=== PATIENT | female | born 1935 | race Caucasian/White ===

== ENCOUNTER 2017-12-27 11:56 | Emergency (ER) | payer MEDICARE, OTHER ==
[~2017-12-27] VITALS: Ht 157.5 cm; Wt 71.9 kg
[~2017-12-27 11:56] MED LIST: ATORVASTATIN CA20 MG PO; CELEBREX200 MG PO; LOSARTAN POTAS100 MG PO; OMEPRAZOLE40 MG PO; OXYBUTYNIN CHLO10 MG PO; POTASSIUM CHLO10 ME2 PO; SYNTHROID125 MCG PO
[2017-12-27] MEDS ORDERED: NORVASC10 MG PO (12:13)
[2017-12-27] MEDS ORDERED: ASPIR 8181 MG PO (12:14)
[2017-12-27] MEDS ORDERED: CALCIUM 500 +1 EAC4 PO (12:15)
[2017-12-27] MEDS ORDERED: HYDRALAZINE HC100 MG PO (12:16)
[2017-12-27] MEDS ORDERED: FEOSOL325 MG PO (12:16)
[2017-12-27] MEDS ORDERED: LASIX20 MG PO (12:17)
[2017-12-27] MEDS ORDERED: VERAPAMIL HCL40 MG PO (12:18)
== END 2017-12-27 13:41 | disposition home or self-care (01) ==
LOC: ED 11:56
DX: R60.0 Localized edema (principal); I10 Essential (primary) hypertension; E03.9 Hypothyroidism, unspecified; Z88.8 Allergy status to other drugs, medicaments and biological substances; Z79.899 Other long term (current) drug therapy; Z79.82 Long term (current) use of aspirin
CPT/HCPCS: 85025; 85610; 93971; 99284

== ENCOUNTER 2024-12-10 06:42 | Day surgery (SDC) | payer MEDICARE, OTHER ==
[2024-12-02 13:27] VITALS: BP 180/55
[~2024-12-10] VITALS: Ht 157.5 cm; Wt 59.1 kg
[~2024-12-10 06:42] MED LIST changes: +ASPIR 8181 MG PO; +CAL MAG ZINC +1 EAC1 PO; +CALCIUM 500 +1 EAC4 PO; +CEFDINIR300 MG PO; +CLOPIDOGREL75 MG PO; +CYCLOBENZAPRINE10 MG PO; +FEOSOL325 MG PO; +HYDRALAZINE HC100 MG PO; +LACTATED RINGER'S 1,000 ML IV SCH; +LASIX20 MG PO; +MAGNESIUM250 M1 PO; +NORVASC10 MG PO; +TYLENOL325 MG PO; +VERAPAMIL HCL40 MG PO; +VIT C-ROSE HIP500 MG PO
[2024-12-10] MEDS ORDERED: LIDOCAINE HCL 1% 5 ML SDV INJ ONE (07:00)
[2024-12-10] MEDS ORDERED: IBLOOD GLUCOSE TEST STRIP 1 EA TEST VI PRN (07:00)
[2024-12-10 07:02] VITALS: BP 190/63
--- NOTE | 2024-12-10 07:47 | NUR ---
VISITED DURING SPIRITUAL CARE ROUNDS. PT SUPPORTED BY ELECTRONIC ENGINEERING TECHNICIAN IN ROOM. BOTH IN OVERALL GOOD SPIRITS, EXPRESSED DORA SOURCE OF STRENGTH. NO IMMEDIATE NEEDS. PROCESS DEVELOPER PROVIDED SUPPORTIVE PRESENCE, HOSPITALITY, PRAYER.
[2024-12-10] MEDS ORDERED: CEFAZOLIN SODIUM 2 GM/20 ML SYR IV SCH (08:03)
[2024-12-10] MEDS ORDERED: propofoL 200 MG/20 ML VIAL ONE (08:18)
[2024-12-10] MEDS ORDERED: LIDOCAINE HCL 2% 5 ML SDV ONE (08:18)
--- NOTE | 2024-12-10 08:45 | NUR ---
12/10/24 0845 Cora Randall 3797-PATIENT ARRIVED TO PACU ON 4L NC RR EVEN. PATIENT LAYING LEFT LATERAL REACTIVE TO VERBAL STIMULI ORIENTED TO PACU. DENIES PAIN OR NAUSEA. ABDOMEN SOFT. APACED. IVF INFUSING.
[2024-12-10 09:16] VITALS: BP 189/57
--- NOTE | 2024-12-15 14:28 | PATH ---
[facility] [address], [place] [address] Signed SPECIMEN(S): A PYLORUS BIOPSY SPECIMEN(S): B ANTRUM BIOPSY SPECIMEN(S): C ESOPHAGEAL BIOPSY, 25 CM SPECIMEN SOURCE: A. PYLORUS BIOPSY B. ANTRUM BIOPSY C. ESOPHAGEAL BIOPSY, 25 CM CLINICAL HISTORY: History of dysphagia, dysmotility of esophagus, normal mucosa FINAL PATHOLOGIC DIAGNOSIS: A. Pylorus biopsy: - Gastric mucosa with superficial chronic gastritis. - Negative for Helicobacter pylori organisms on routine-stained sections. B. Antrum biopsy: - Gastric antral-type mucosa with superficial chronic gastritis. - A Helicobacter pylori immunostain is positive for organisms. C. Esophageal biopsy at 25 cm: - Benign esophageal epithelium, negative for increased epithelial eosinophils. - Negative for glandular mucosa. JVR:clv MICROSCOPIC EXAMINATION: Histologic sections of all submitted blocks are examined by light microscopy. These findings, together with the gross examination, support the pathologic diagnosis. A Helicobacter pylori immunostain is performed with appropriate positive and negative controls on block B1 and is negative for organisms. JVR:clv GROSS DESCRIPTION: A. The specimen, labeled and designated "Sacrison, pylorus biopsy," is received in formalin and consists of two robert soft tissue fragments, ranging from 0.4-0.6 cm. Entirely submitted in (A1). B. The specimen, labeled and designated "Sacrison, antrum biopsy," is received in formalin and consists of two robert soft tissue fragments, ranging from 0.4-0.5 cm. Entirely submitted in (B1). C. The specimen, labeled and designated "Sacrison, esophageal biopsy at 25 cm," is received in formalin and consists of one robert soft tissue fragment, 0.5 cm. PATIENT NAME: KANG MORALES PATHOLOGY DATE OF : 39 REPORT #: [id number] PHYSICIAN: [facility] PCP: SUGEY AGUIRRE MD REPORT IS CONFIDENTIAL AND NOT TO BE RELEASED WITHOUT AUTHORIZATION [facility] [address], [place] [address] Signed Entirely submitted in (C1). VB (under the direct supervision of a pathologist) The Gross Description was prepared using a voice recognition system. The report was reviewed for accuracy; however, sound-alike word errors, addition and/or deletions may occur. If there is any question about this report, please contact Client Services. ADDITIONAL NOTES: Immunohistochemical and/or in situ hybridization studies were performed on this case with the appropriate positive controls that react as expected. This test was developed and its performance characteristics determined by [facility]. It has not been cleared or approved by the U.S. Food and Drug Administration. The FDA has determined that such clearance or approval is not necessary. This test is used for clinical purposes. It should not be regarded as investigational or for research. [facility] is certified under the Clinical Laboratory Improvement Amendments of 1988 (CLIA) as qualified to perform high complexity clinical laboratory testing. This assay has not been validated for specimens that have been decalcified PERFORMING LABORATORY: Technical component was performed by [facility], [address] [place] [id number] (CLIA# [id number]). Professional interpretation was performed by [facility] - [facility], [address] [place] [id number] (CLIA#: [id number]). Diagnostician: José Miguel Gardner MD Pathologist Electronically Signed 12/15/2024 Copies: ~ PATIENT NAME: KANG MORALES PATHOLOGY DATE OF : 39 REPORT #: [id number] PHYSICIAN: [facility] PCP: SUGEY AGUIRRE MD REPORT IS CONFIDENTIAL AND NOT TO BE RELEASED WITHOUT AUTHORIZATION
== END 2024-12-10 09:20 | disposition home or self-care (01) ==
LOC: DS 06:42
PROVIDERS: ATTEND Surgery
PROC: 0DB78ZX Excision of Stomach, Pylorus, Via Natural or Artificial Opening Endoscopic, Diagnostic (ICD-10-PCS; 2024-12-10)
PROC: 0DB58ZX Excision of Esophagus, Via Natural or Artificial Opening Endoscopic, Diagnostic (ICD-10-PCS; principal; 2024-12-10 08:30)
DX: K29.50 Unspecified chronic gastritis without bleeding (principal); R13.10 Dysphagia, unspecified; E03.9 Hypothyroidism, unspecified; E78.5 Hyperlipidemia, unspecified; M19.90 Unspecified osteoarthritis, unspecified site; J45.909 Unspecified asthma, uncomplicated; I10 Essential (primary) hypertension; Z79.899 Other long term (current) drug therapy; Z88.8 Allergy status to other drugs, medicaments and biological substances
CPT/HCPCS: 00813; 36415; 87077; J0690; J2003; J2704; J7121

== ENCOUNTER 2025-05-05 14:25 | Inpatient (IN) | payer MEDICARE, OTHER ==
[~2025-05-05] VITALS: Ht 157.5 cm; Wt 56.6 kg
[~2025-05-05 14:25] MED LIST changes: -LACTATED RINGER'S 1,000 ML IV SCH; -OXYBUTYNIN CHLO10 MG PO; +OXYBUTYNIN CHLO15 MG PO; +SEVOFLURANE 250 ML BTL INH ONE
[2025-05-05 15:03] LABS: BASOPHILS 0.2 % (0.1-1.2); EOSINOPHILS 1.2 % (0.7-5.8); LYMPHOCYTES 16.2 % (19.3-51.7); MCH 32.3 PG (25.6-32.2); MCHC 33.7 g/dL (32.2-35.5); MCV 95.6 fL (79.4-94.8); MONOCYTES 6.1 % (4.7-12.5); NEUTROPHILS 76.1 % (34.0-71.1); RBC 3.41 M/uL (3.93-5.22)
[2025-05-05 15:27] LABS: ALT (SGPT) 18.0 U/L (14-59); AST (SGOT) 15.0 U/L (15-37); GLOMERULAR FILTRATION RATE,EST 50.0 mL/min (>60); PROTEIN, TOTAL 7.6 g/dL (6.4-8.2); UREA NITROGEN 26.0 mg/dL (7-18)
[2025-05-05] MEDS ORDERED: SODIUM CHLORIDE 0.9% 1,000 ML IV PRN ×2 (15:30→16:00)
[2025-05-05 17:57] LABS: BLOOD/HGB, URINE NEGATIVE (Negative); KETONE, URINE TRACE (Negative); LEUK ESTERASE, URINE NEGATIVE (negative); NITRITE, URINE NEGATIVE (negative)
[2025-05-05] MEDS ORDERED: LACTATED RINGER'S 1,000 ML IV SCH (18:45)
[2025-05-05] MEDS ORDERED: DEXTROSE 5% - LACTATED RINGERS 1,000 ML IV SCH (20:30)
--- NOTE | 2025-05-05 20:35 | NUR ---
PT TO ROOM APPROX 2019 VIA STRETCHER WITH ED RN. PT ALERT AND ORIENTED. ABLE TO TRANSFER SELF FROM STRETCHER TO BED. VS OBTAINED. PT DENIES PAIN OR NAUSEA AT THIS TIME. MD IN ROOM. TRUCKER IN FOR ADMISSION.
--- NOTE | 2025-05-05 20:49 | NUR ---
ADMISSION COMPLETED AT THIS TIME, pt AWAKE AND RESTING IN BED. VERBALIZED UNDERSTANDING TO USE CALL LIGHT BEFORE GETTING OOB, CALL LIGHT AND PERSONAL BELONGINGS IN REACH. MOUTH SWAB PROVIDED PER pt REQUEST, OKAY'D BY KYLE AUGUSTINE. NO ADDITIONAL NEEDS OR CONCERNS VERBALIZED.
[2025-05-05] MEDS ORDERED: FAMOTIDINE 20 MG/ 2 ML VIAL IV SCH ×2 (21:00)
[2025-05-05 21:19] VITALS: BP 169/42
--- NOTE | 2025-05-05 23:15 | NUR ---
CALL LIGHT ANSWERED. PT UP TO BR WITH WITH MINIMAL SBA TO VOID 300 ML YELLOW URINE. GAIT STEADY. BACK TO BED, MAYCOL WELL. PT UNABLE TO SWALLOW SALIVA. PT CLEARING THROAT AND SPITTING IN TISSUE. HOB ELEVATED >30 DEGREES. WARM BLANKET PROVIDED. NO FURTHER NEEDS. BED ALARM IN PLACE. CALL LIGHT IN REACH.
[2025-05-06] VITALS (12 sets, daily range): BP systolic 147–190; BP diastolic 42–54
--- NOTE | 2025-05-06 02:29 | NUR ---
VS AND I&O OBTAINED. BP ELEVATED. PRN FOR HTN ADMIN PER EMAR. PT DENIES PAIN OR NAUSEA. HOB ELEVATED. DENIES NEEDS. CALL LIGHT IN REACH.
--- NOTE | 2025-05-06 04:50 | NUR ---
PT RESTING IN BED WITH EYES CLOSED. HOB ELEVATED. CALL LIGHT IN REACH. BED ALARM FOR SAFETY.
--- NOTE | 2025-05-06 05:13 | NUR ---
PT SLEEPING. PT HAS NO NEEDS AT THIS TIME. CALL LIGHT WITHIN REACH.
[2025-05-06 05:17] LABS: BASOPHILS 0.5 % (0.1-1.2); EOSINOPHILS 7.0 % (0.7-5.8); LYMPHOCYTES 24.6 % (19.3-51.7); MCH 32.2 PG (25.6-32.2); MCHC 33.1 g/dL (32.2-35.5); MCV 97.2 fL (79.4-94.8); MONOCYTES 8.6 % (4.7-12.5); NEUTROPHILS 59.1 % (34.0-71.1); RBC 2.86 M/uL (3.93-5.22)
[2025-05-06 05:33] LABS: ALT (SGPT) 13.0 U/L (14-59); AST (SGOT) 10.0 U/L (15-37); GLOMERULAR FILTRATION RATE,EST 59.0 mL/min (>60); PROTEIN, TOTAL 6.2 g/dL (6.4-8.2); UREA NITROGEN 18.0 mg/dL (7-18)
--- NOTE | 2025-05-06 06:08 | NUR ---
IV PUMP ALARMING. ISSUE RESOLVED. PT NPO. ORAL CARE SUPPLIES PROVIDED. IVF INFUSING PER ORDER. PT UNABLE TO SWALLOW SPUTUM. SMALL AMOUNT NOTED IN PAPER CUP. HOB REMAINS ELEVATED. PT DENIES FURTHER NEEDS. CALL LIGHT IN REACH.
--- NOTE | 2025-05-06 07:02 | NUR ---
PHONED REGARDING CHEST X-RAY. NEW TELEPHONE ORDERS RECEIVED VERIFIED WITH READBACK METHOD.
--- NOTE | 2025-05-06 09:23 | NUR ---
Patient assisted to chair, no acute distress. Patient reports she is feeling better this morning, she denies pain, pt reports continued intermittent regurgitation. Patient has a patent airway, respirations non labored. Blood pressure elevated, 190/52, p60. Hydralazine 5mg iv admin at this time.
--- NOTE | 2025-05-06 09:53 | NUR ---
PATIENT ASSISTED TO BATHROOM SBA, TOLERATED WELL. PATIENT SITTING UP IN RECLINER WATCHING TV, DENIES ANY NEEDS AT THIS TIME. CALL LIGHT IN REACH.
--- NOTE | 2025-05-06 10:24 | NUR ---
ALERT AND ORIENTED IN RECLINER. STATES SHE LIVES WITH HER SISTER IN LAW IN A HOUSE. SHE IS ABLE TO GET AROUND WITHOUT ANY ASSISTANCE. USES NO DME BUT DOES HAVE A LOT OF DME IN HER HOME SHE LENDS OUT TO THOSE IN NEED. SHE IS PLANNING ON GOING [employer] NEXT WEEK. 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 SHE HAS A [employer] FOR [employer] WHEN HER [employer] IS GONE. PATIENT STATES SHE HAS ABSOLUTELY NO NEEDS AT THIS TIME AND WILL BE GOING HOME WHEN MEDICALLY READY, SHE IS HOPING THAT IS TODAY OR TOMORROW MORNING.
[2025-05-06] MEDS ORDERED: SYNTHROID75 MCG PO (10:44)
[2025-05-06] MEDS ORDERED: HYDRALAZINE HCL50 MG PO (10:44)
[2025-05-06] MEDS ORDERED: METOPROLOL SUCC50 MG PO (10:45)
[2025-05-06] MEDS ORDERED: LOSARTAN POTASS50 MG PO (10:46)
--- NOTE | 2025-05-06 10:46 | HP ---
[facility] [address], [place] [address] Signed ADMISSION DATE: 05/05/2025 REASON FOR ADMISSION: Esophageal obstruction, weight loss. HISTORY OF PRESENT ILLNESS: This 89-year-old white woman presents to the emergency room with complaints of epigastric pain and vomiting, which occurred yesterday. The patient says she has been unable to keep food down for a few days actually. She has regurgitation of saliva, which is described as "clear bubbly fluid." She was evaluated by Dr. Esdras Mcneil in the emergency room. A CT scan was obtained of the abdomen, which showed the lower most portion of the esophagus with some dilation and food material within it. The more proximal review of the CT was not forthcoming. Quite notably upon review of her record, she had been seen and underwent upper endoscopy by Dr. Devine on January 26, 2025. At that time upper endoscopy showed a fair amount of dry desiccated food debris from the proximal esophagus extending distally to the GE junction. The GE junction did not appear "tight." There was no stricture seen or neoplasm. The scope was passed in the stomach, which was advanced to the pylorus into the duodenum. The GE junction appeared normal and there were one or two gastric fundic polyps, but no masses seen. She had no evidence of Nino's esophagus at the distal esophageal area. The GE junction was considered to be at 40 cm. At 30 cm a white plaque like lesion was noted and a biopsy was taken of this. The patient says she has really not eaten for several days. This makes her anxious because she wants to go out cutting at her generous age of 89 years on May 17. She wants to be out of the hospital and back to action then. She has her a hunting [place] place [place]. She has had no hematemesis or other GI distress. REVIEW OF SYSTEMS: She denies any shortness of breath or chest pain. She has only had mild epigastric discomfort, but not much. She is not having hypersalivation. PHYSICAL EXAMINATION: GENERAL: An elderly 89-year-old woman who looks to be in no acute distress. VITAL SIGNS: Temperature is 98.1, pulse is 60, blood pressure 163/48. Trachea is midline. I detect no bruit. CHEST: Clear. HEART: Regular without murmur. ABDOMEN: Poor muscle tone, but concordant to her age. Abdominal palpation reveals no Electronically Signed By: LIZETTE CORRIGAN MD 05/06/25 1046 PATIENT NAME: KANG MORALES HISTORY AND PHYSICAL DATE OF : 39 REPORT #: [id number] PHYSICIAN: LIZETTE CORRIGAN MD PCP: SUGEY AGUIRRE MD REPORT IS CONFIDENTIAL AND NOT TO BE RELEASED WITHOUT AUTHORIZATION [facility] [address], [place] [address] Signed ascites, tenderness, or mass. EXTREMITIES: No clubbing, cyanosis, or edema. ASSESSMENT: I reviewed her medical records including those of her recent upper endoscopy this past December. I also noted that I had operated on her in 2008 for an incisional hernia at the umbilicus; I had previously excised benign pelvic mass from her. Although, my 1st concern upon learning of the patient was that of esophageal cancer given her weight loss and apparent obstruction of the esophagus. 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 At this point, she will be given IV fluids and avoiding oral intake other than a few sips of fluid as needed for comfort. Upper endoscopy for clearance of the esophagus would be undertaken and possibly an upper GI to affirm an underlying diagnosis of achalasia. I doubt very much this represents a benign or malignant stricture proper. Although a classic treatment for achalasia would be esophageal myotomy, she may benefit on a short-term basis with an injection of Botox into the submucosal area of the esophageal sphincter to allow for muscle relaxation. There are of course other more notable advancements in achalasia treatment including POEM (per oral endoscopic myotomy), but that is not locally or even regionally available that I am aware of. For now, patient will be given IV fluids, a few sips of liquids as needed for comfort and we will consider reimaging of the esophagus proper tomorrow. MD BLAINE Alejo/MODL /[id number] cc: MD Sugey Jones MD Electronically Signed By: LIZETTE CORRIGAN MD 05/06/25 1046 PATIENT NAME: KANG MORALES HISTORY AND PHYSICAL DATE OF : 39 REPORT #: [id number] PHYSICIAN: LIZETTE CORRIGAN MD PCP: SUGEY AGUIRRE MD REPORT IS CONFIDENTIAL AND NOT TO BE RELEASED WITHOUT AUTHORIZATION [address] [place], [place] [address] Signed Copies: SUGEY AGUIRRE DMD ~ Electronically Signed By: LIZETTE CORRIGAN MD 05/06/25 1046 PATIENT NAME: KANG MORALES HISTORY AND PHYSICAL DATE OF : 39 REPORT #: [id number] PHYSICIAN: LIZETTE CORRIGAN MD PCP: SUGEY AGUIRRE MD REPORT IS CONFIDENTIAL AND NOT TO BE RELEASED WITHOUT AUTHORIZATION
--- NOTE | 2025-05-06 12:56 | NUR ---
Patient in chair on phone, no distress. Patient is on room air, respirations non labored, sp02 91% per cpox.
--- NOTE | 2025-05-06 13:32 | NUR ---
UR CLINICAL REVIEW: 2 MN FOR [facility]PER SUPERINTENDENT AUTOMOTIVE MEET INPT FOR POSSIBLE ACHALASIA WITH NEED FOR SURGICAL PROCEDURE, IVF AND MONITORING. MEDICARE INPT 05/05/25 @ 2020 ORDER MATCHES REG NO AUTH REQUIRED PER MEDICARE GUIDELINES DISCHARGE TO HOME WHEN STABLE
--- NOTE | 2025-05-06 14:42 | NUR ---
HOURLY ROUNDING DELEGATED BY NURSE TO RECHECK PATIENT BP. NURSE HAS BEEN NOTIFIED
--- NOTE | 2025-05-06 14:45 | NUR ---
PT BP ELEVATED STILL, PRIMARY RN NOTIFIED. PRN HYRALAZINE GIVEN.
--- NOTE | 2025-05-06 14:50 | NUR ---
PT RESTING IN BED, ELEVATED BP. DR. CORRIGAN NOTIFIED AND ORDERS TO INCREASE HYDRALAZINE TO 10MG Q6HRS PRN FOR SBP>170, ORDERS UPDATED IN THE COMPUTER. MD ALSO WOULD LIKE ME TO LET PATIENT KNOW SHE WILL BE GOING DOWN TOMORROW FOR AN EGD, REMAIN NPO AT THIS TIME. PT VERBALIZED UNDERSTANDING.
--- NOTE | 2025-05-06 15:31 | NUR ---
FOCUSED ASSESSMENT COMPLETE. BOWEL SOUNDS ACTIVE IN ALL FOUR QUADRANTS, PATIENT STATES "I HAVE BEEN SPITTING UP IN A CUP." THIS RN VISUALIZED SCANT AMOUNT OF REGURGITATED SALIVA IN THE CUP. PATIENT SITTING UP PLAYING CARDS WITH FAMILY AT THE BEDSIDE. PATIENT DENIES NEEDS AT THIS TIME. CALL LIGHT IN REACH.
[2025-05-06] MEDS ORDERED: ADULT LOW DOSE81 MG PO (17:05)
--- NOTE | 2025-05-06 17:26 | NUR ---
medications reconiciled using PCP notes and patient interview
--- NOTE | 2025-05-06 19:05 | NUR ---
REPORT RECEIVED FROM JENNI AUGUSTINE. pt RESTING IN THE BED. pt RECEIVED PHONE CALL FROM FAMILY. pt DENIES ANY OTHER NEEDS AT THIS TIME. CALL LIGHT WITHIN REACH. BOARD UPDATED.
--- NOTE | 2025-05-06 20:15 | NUR ---
AGRICULTURAL CROP FARM MANAGER OBTAINED VITALS. NO NEW I&O AT THIS TIME. PT DECLINED ORAL CARE. PT STATES NO NEEDS AT THIS TIME. CALL LIGHT WITHIN REACH AND BED ALARM ON.
--- NOTE | 2025-05-06 20:50 | NUR ---
ASSESSMENT AND VITAL SIGNS DONE. IV ASSESSED, WNL. pt DENIES ANY OTHER NEEDS AT THIS TIME. CALL LIGHT WITHIN REACH. pt NPO AT THIS TIME. ICE CHIPS FOR COMFORT.
--- NOTE | 2025-05-06 22:30 | NUR ---
THIS RN IN RM TO CHECK ON pt. pt TRYING TO SIT ON THE EDGE OF THE BED TO USE THE BR. THIS RN HELPED pt GET ON THE EDGE OF THE BED. BRINELL TESTER IN TO HELP pt TO THE BR. pt BACK TO BED. pt DENIES ANY OTHER NEEDS AT THIS TIME. CALL LIGHT WITHIN REACH.
[2025-05-07] VITALS (11 sets, daily range): BP systolic 142–207; BP diastolic 33–66
--- NOTE | 2025-05-07 00:30 | NUR ---
pt BED ALARM ALARMING. pt SITTING ON THE EDGE OF THE BED. pt ASKING WHAT TIME IT WAS AND WHERE SHE WAS AND WHY SHE WAS HERE. THIS RN EDUCATED pt AND REMINDED pt THAT SHE WAS AT THE HOSPITAL AND SHE WAS HERE FOR A PROCEDURE CALLED AN EGD IN THE MORNING AND THAT IT WAS THE MIDDLE OF THE NIGHT. pt SAID "SO I DONT HAVE TO GET UP" pt BACK TO BED. pt DENIES ANY OTHER NEEDS AT THIS TIME. CALL LIGHT WITHIN REACH.
--- NOTE | 2025-05-07 02:49 | NUR ---
pt RESTING IN THE BED WITH EYES CLOSED. RR EVEN AND UNLABORED. CALL LIGHT WITHIN REACH.
--- NOTE | 2025-05-07 03:27 | NUR ---
pt RESTING IN THE BED. NEW BAG OF IVF INFUSING PER ORDER. pt DENIES ANY OTHER NEEDS AT THIS TIME. CALL LIGHT WITHIN REACH.
--- NOTE | 2025-05-07 04:16 | NUR ---
pt RESTING IN THE BED WITH EYES CLOSED. RR EVEN AND UNLABORED. CALL LIGHT WITHIN REACH.
--- NOTE | 2025-05-07 04:53 | NUR ---
CALL LIGHT ANSWERED. PT NEEDED TO USE BATHROOM. KILN CAR REPAIRER SBA TO BATHROOM. PT VOIDED AND ASSISTED BACK TO BED. VITALS AND I&O OBTAINED. FAWN EDWARDS NOTIFIED OF HIGH B/P. PT STATES NO NEEDS WITH CALL LIGHT WTIHIN REACH. PT SITTING AT EDGE OF BED BRUSHING YOMI WITH BED ALARM ON.
--- NOTE | 2025-05-07 05:12 | NUR ---
IN RM TO ADMINISTER pt PRN HYDRALAZINE FOR ELEVATED BP. pt SITTING ON THE EDGE OF THE BED. pt DENIES ANY NEEDS AT THIS TIME. CALL LIGHT WITHIN REACH.
--- NOTE | 2025-05-07 05:56 | NUR ---
THIS CUSTOMS HOUSE BROKER RECHECKED PT B/P. RN NOTIFIED. PT STATES NO NEEDS AT THIS TIME. CALL LIGHT WITHIN REACH AND BED ALARM ON.
--- NOTE | 2025-05-07 06:00 | NUR ---
pt BP RECHECKED WITH A SBP RESULTS OF 168. pt DENIES ANY OTHER NEEDS AT THIS TIME. CALL LIGHT WITHIN REACH.
--- NOTE | 2025-05-07 07:11 | NUR ---
VERBAL REPORT RECEIVED BY GRACE AUGUSTINE. PATIENT IS RESTING IN BED EYES CLOSED BREATHING EVEN AND UNLABORED. NO NEEDS AT THIS TIME. CALL LIGHT IN REACH.
[2025-05-07] MEDS ORDERED: FAMOTIDINE 20 MG/ 2 ML VIAL IV SCH (09:00)
--- NOTE | 2025-05-07 09:00 | NUR ---
INTO SEE PATIENT. PATIENT WOULD LIKE TO D/C SOON POSSIBLE. HAS A SISTER IN LAW TO TAKE HER HOME WHEN MEDICALLY CLEARED. SHE WOULD LIKE TO GET TO [facility]. NO CM NEEDS.
--- NOTE | 2025-05-07 12:40 | NUR ---
IN ROOM WITH PATIENT, FAMILY AT BEDSIDE. DISCUSSED POC REQUESTED BY PATIENT. PATIENT DENIES ANY NEEDS AT THIS TIME. BED ALARM ON FOR PATIENT SAFETY. CALL LIGHT IN REACH.
--- NOTE | 2025-05-07 14:03 | NUR ---
PATIENT SITTING UP AT EDGE OF BED PLAYING CARDS WITH STAFF MEMBER. DENIES ANY NEEDS AT THIS TIME. CALL LIGHT IN REACH.
--- NOTE | 2025-05-07 14:36 | NUR ---
PATIENT DOWN TO OR VIA BED BY OR STAFF. SON CONSTANCE NOTIFIED PER REQUEST.
[2025-05-07] MEDS ORDERED: SUCCINYLCHOLINE IN 0.9% NACL 200 MG/10 ML SYRINGE ONE (15:23)
[2025-05-07] MEDS ORDERED: LIDOCAINE HCL 2% 5 ML SDV ONE (15:23)
[2025-05-07] MEDS ORDERED: ROCURONIUM BROMIDE 50 MG/5 ML SYR ONE (15:23)
[2025-05-07] MEDS ORDERED: fentaNYL citrate 100 MCG/2 ML VIAL ONE (15:23)
[2025-05-07] MEDS ORDERED: DEXAMETHASONE SOD PHOS 4 MG/ML VIAL ONE (15:23)
[2025-05-07] MEDS ORDERED: NALOXONE HCL 0.4 MG SYR IV PRN (15:30)
[2025-05-07] MEDS ORDERED: IBLOOD GLUCOSE TEST STRIP 1 EA TEST VI PRN (15:30)
--- NOTE | 2025-05-07 15:39 | NUR ---
05/07/25 1539 Danica Martino PATIENT IS RESPONSIVE TO MY VOICE UPON ARRIVAL TO PACU.
--- NOTE | 2025-05-07 16:05 | NUR ---
PATIENT ARRIVED TO [facility] FLOOR ROOM 109 VIA BED, ACCOMPANIED BY FAWN ALVARADO. REPORT RECEIVED. PATIENT AWAKE AND ALERT, DENIES PAIN AT THIS TIME. CPOX INTACT, CALL LIGHT WITHIN REACH.
--- NOTE | 2025-05-07 16:49 | NUR ---
CLEAR ENSURE AND ICE WATER PROVIDED PER PATIENT REQUEST. PATIENT ABLE TO SWALLOW AND TOLERATING WELL. PRN HYDROLAZINE GIVEN FOR SYSTOLIC GREATER THAN 170 ORDERED. CALL LIGHT IN REACH. PATIENT SITTING UP IN BED WATCHING TV AT THIS TIME.
--- NOTE | 2025-05-07 18:32 | NUR ---
PT SITTING UP IN BED WATCHING TV, JUST FINISHED DINNER TRAY. PT TOLERATED HER LIQUID DINNER WELL. NO REQUESTS AT THIS TIME. CALL LIGHT WITHIN REACH. BED ALARM ON.
--- NOTE | 2025-05-07 19:51 | NUR ---
pt RESTING IN THE BED. REPORT RECEIVED FROM LORENZO AUGUSTINE. pt DENIES ANY NEEDS AT THIS TIME. BOARD UPDATED. CALL LIGHT WITHIN REACH.
--- NOTE | 2025-05-07 21:06 | NUR ---
ASSESSMENT AND VITAL SIGNS DONE. pt BOWEL TONE ARE ACTIVE. pt ON CLEAR LIQUID DIET. pt TOLERATING WELL. IV ASSESSED, WNL. pt DENIES ANY OTHER NEEDS AT THIS TIME. CALL LIGHT WITHIN REACH.
--- NOTE | 2025-05-07 23:38 | NUR ---
pt RESTING IN THE BED WITH EYES CLOSED. RR EVEN AND UNLABORED. CALL LIGHT WITHIN REACH.
--- NOTE | 2025-05-07 23:55 | NUR ---
CALL LIGHT ANSWERED. PT NEEDED TO USE BATHROOM. VOICE NETWORK ENGINEER SBA TO BATHROOM. PT VOIDED NAD ASSISTED BACK TO BED. PT STATES NO FURTHER NEEDS AT THIS TIME. CALL LIGHT WITHIN REACH AND BED ALARM ON.
[2025-05-08 00:46] VITALS: BP 160/50
[2025-05-08 00:47] VITALS: BP 160/50
--- NOTE | 2025-05-08 01:00 | NUR ---
VITAL SIGNS DONE. pt RESTING IN THE BED. pt DENIES ANY NEEDS AT THIS TIME. CALL LIGHT WITHIN REACH.
--- NOTE | 2025-05-08 03:26 | NUR ---
pt RESTING IN THE BED WITH EYES CLOSED. RR EVEN AND UNLABORED. CALL LIGHT WITHIN REACH. FLUIDS TAKEN AWAY FROM BED SIDE.
[2025-05-08 05:32] VITALS: BP 173/62
--- NOTE | 2025-05-08 05:33 | NUR ---
ASSISTED PT OOB TO BR AND BACK TO BED. VITALS DONE, HAT EMPTIED. CALL LIGHT IN REACH, NO NEEDS AT THIS TIME.
--- NOTE | 2025-05-08 09:30 | NUR ---
INTO SEE PATIENT. PATIENT STILL HOPING TO D/C SOON. PATIENT SISTER IN LAW TO GOVERNMENT PROFESSOR WHEN MEDICALLY CLEARED. NO CM NEEDS.
[2025-05-08 09:53] VITALS: BP 173/50
[2025-05-08 10:15] VITALS: BP 173/50
--- NOTE | 2025-05-08 10:31 | NUR ---
Patient in bed watching tv, no acute distress. Patient's head of bed elevated, patent airway, respiration non labored. Patient denies pain/nausea. Patient continues to express that she wants to go home, she was tearful this morning. Patient educated regarding plan of care and planned study this morning. Oral care provided, chapstick provided.
--- NOTE | 2025-05-08 12:14 | OR ---
[facility] [address] [place], [place] [address] Signed DATE OF OPERATION: 05/07/2025 SURGEON: Lizette Corrigan MD PREOPERATIVE DIAGNOSIS: Recent recurring food impaction of the esophagus. POSTOPERATIVE DIAGNOSIS: Recent recurring food impaction of the esophagus; minimal residual food of esophagus without associated stricture. PROCEDURE: Esophagogastroduodenoscopy with biopsy. ANESTHESIA: General endotracheal, Frederick Bunn, PRESCRIPTION CLERK LENSES. INDICATIONS: This 89-year-old white woman is a patient DrCarmella Aguirre and more recently Dr. Ciara Simeon. In November, she had a food impaction, undergoing upper endoscopy by Dr. Simeon, but showing no sign of stricture or neoplasm of the distal esophagus. She was on a PPI medication previously discontinued. She presented to the emergency room on May 05, 2025 with complaints of epigastric pain and vomiting, which had occurred the day before as well as and persistent weight loss of greater than 60 pounds. Evaluation in the emergency room by Dr. Esdras Mckeon included a CT scan of the abdomen showing the lower most portion of the esophagus with some dilation and food material within it. She had undergone upper endoscopy on January 26, 2025, by Dr. Simeon showing a fair amount of desiccated food debris in the upper esophagus extending to the GE junction. There was no evidence of neoplasm or stricture. She has been allowed to have time for clearance of the esophagus as she does not have profound symptoms. An upper GI was performed yesterday, which showed retained food within the distal portion of the esophagus and a dilated esophagus as well. It has been my suspicion that she has achalasia for which myotomy either chemical or surgical would be a consideration if present. More likely, she has primary dysmotility of esophagus or she may have a combination of the two. She is now to undergo upper endoscopy for clearance of the esophagus, better evaluation of the GE junction and body of the esophagus. FINDINGS: Electronically Signed By: LIZETTE CORRIGAN MD 05/08/25 1214 PATIENT NAME: KANG MORALES OPERATIVE REPORT DATE OF : 39 REPORT #: [id number] PHYSICIAN: LIZETTE CORRIGAN MD PCP: SUGEY AGUIRRE MD REPORT IS CONFIDENTIAL AND NOT TO BE RELEASED WITHOUT AUTHORIZATION [facility] [address] [place], [place] [address] Signed There was some residual mucoidal adherence of food to the mid esophagus, but no large and solid amount and certainly no complete obstruction. Stomach and duodenum were evaluated and appeared to be slight inflammation of the duodenum, none of the stomach particularly. Retroflexed view did confirm a hiatal hernia. The distal esophagus at first glance appeared normal. There may be mild chronic inflammation there, however. Passage of the scope through the GE junction was quite easy. Midportion of esophagus was somewhat dilated, but irrigated, allowing for biopsies to assess for eosinophilic esophagitis. She tolerated the procedure well. DESCRIPTION OF PROCEDURE: The patient was brought to the surgical endoscopy suite, given a general endotracheal anesthetic to protect the airway and the possibility of a very full esophagus. In the supine position, an Olympus video upper endoscope was passed by hypopharynx. Vocal cords were effaced by the endotracheal tube. Scope was easily passed in the esophagus. Examination was undertaken. At first glance, it appeared entirely normal except for retained gelatinous mucoid like food on the midportion. This was irrigated free and ultimately cleared. The scope was then passed through the GE junction without impediment into the stomach and then stomach insufflated. Rugal folds were normal as was the pylorus. The scope was passed through the pylorus into the duodenum. No strong evidence of celiac disease was noted, though biopsies were obtained nevertheless to assess for that. The scope was withdrawn and biopsies then taken of the antrum for both JONA and pathologic testing. Retroflexed view showed a poor flap valve and hiatal hernia. The scope was straightened and withdrawn and taken into the distal esophagus. Careful inspection showed no Nino's epithelium per se and certainly no stricture or ulceration or deformity. Multiple biopsies were taken of the mucosa. Scope was withdrawn to the mid esophagus where similar biopsies were obtained. The scope was then removed. The patient was taken to the recovery room in good condition. 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 However, she may additionally have hypertensive sphincter or failure to relax maty to now a probable achalasia. PLAN: She will be allowed liquids tonight, but an upper GI will be repeated tomorrow to assess for motility and failure or ability to relax the distal esophageal sphincter. Lizette Corrigan MD Electronically Signed By: LIZETTE CORRIGAN MD 05/08/25 1214 PATIENT NAME: KANG MORALES OPERATIVE REPORT DATE OF : 39 REPORT #: [id number] PHYSICIAN: LIZETTE CORRIGAN MD PCP: SUGEY AGUIRRE MD REPORT IS CONFIDENTIAL AND NOT TO BE RELEASED WITHOUT AUTHORIZATION [facility] [address] [place] [address] Signed /MODL /[id number] cc: MD Sugey Bear MD Copies: CIARA SIMEON MD, ROBERT D DMD ~ Electronically Signed By: LIZETTE CORRIGAN MD 05/08/25 1214 PATIENT NAME: KANG MORALES OPERATIVE REPORT DATE OF : 39 REPORT #: [id number] PHYSICIAN: LIZETTE CORRIGAN MD PCP: SUGEY AGUIRRE MD REPORT IS CONFIDENTIAL AND NOT TO BE RELEASED WITHOUT AUTHORIZATION
[2025-05-08 13:29] VITALS: BP 155/47
--- NOTE | 2025-05-14 14:21 | PATH ---
[facility] [address] [facility] [place], [place] [address] Signed SPECIMEN(S): A DUODENAL BIOPSY SPECIMEN(S): B ANTRUM/ANTRAL BIOPSY SPECIMEN(S): C LOWER ESOPHAGEAL BIOPSY SPECIMEN(S): D MID ESOPHAGEAL BIOPSY SPECIMEN SOURCE: A. DUODENAL BIOPSY B. ANTRUM/ANTRAL BIOPSY C. LOWER ESOPHAGEAL BIOPSY D. MID ESOPHAGEAL BIOPSY CLINICAL HISTORY: Esophageal obstruction, persistent dysphagia FINAL PATHOLOGIC DIAGNOSIS: A. 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 See comment. B. Stomach, antrum, biopsy: - Antral-type mucosa with moderate chronic inflammation and focal inflammatory activity. - Negative for H pylori organisms by immunohistochemistry. - Negative for intestinal metaplasia, dysplasia, and malignancy. C. Lower esophagus, biopsy: - Mild chronic esophagitis with increased eosinophils (up to 6 per hpf), negative for Nino's metaplasia. D. Mid-esophagus, biopsy: - Mild chronic esophagitis with increased eosinophils (up to 8 per hpf). COMMENT: The duodenal biopsies do not show significantly increased intraepithelial lymphocytes (CD3 immunohistochemical stain confirms this), and diagnostic considerations include peptic duodenitis v. celiac disease. If there is a clinical concern for sprue, correlation with appropriate serologic testing is recommended. SDL:AMB MICROSCOPIC EXAMINATION: Histologic sections of all submitted blocks are examined by light microscopy. These findings, together with the gross examination, support the pathologic diagnosis. PATIENT NAME: KANG MORALES PATHOLOGY DATE OF : 39 REPORT #: [id number] PHYSICIAN: TATYANA PATHOLOGY PCP: SUGEY AGUIRRE MD REPORT IS CONFIDENTIAL AND NOT TO BE RELEASED WITHOUT AUTHORIZATION [facility] [address] [place], [place] [address] Signed GROSS DESCRIPTION: A. The specimen, labeled and designated "Sacrison, duodenal biopsy," is received in formalin and consists of two robert soft tissue fragments, ranging from 0.3-0.4 cm. Entirely submitted in (A1). B. The specimen, labeled and designated "Sacrison, antral biopsy," is received in formalin and consists of two robert soft tissue fragments, ranging from 0.3-0.4 cm. Entirely submitted in (B1). C. The specimen, labeled and designated "Sacrison, lower esophageal biopsy," is received in formalin and consists of three robert soft tissue fragments, ranging from 0.2-0.4 cm. Entirely submitted in (C1). D. The specimen, labeled and designated "Sacrison, mid esophageal biopsy," is received in formalin and consists of four robert soft tissue fragments, ranging from 0.1-0.5 cm. Entirely submitted in (D1). VB (under the direct supervision of a pathologist) The Gross Description was prepared using a voice recognition system. The report was reviewed for accuracy; however, sound-alike word errors, addition and/or deletions may occur. If there are any questions about this report, please contact Client Services. ADDITIONAL NOTES: Immunohistochemical and/or in situ hybridization studies if performed in this case included appropriate positive controls that reacted as expected. This test was developed and its performance characteristics determined by [facility]. It has not been cleared or approved by the U.S. Food and Drug Administration. The FDA has determined that such clearance or approval is not necessary. This test is used for clinical purposes. It should not be regarded as investigational or for research. [facility] is certified under the Clinical Laboratory Improvement Amendments of 1988 (CLIA) as qualified to perform high complexity clinical laboratory testing. PERFORMING LABORATORY: Technical component was performed by [facility], [address] [place] [id number] (CLIA# [id number]). Professional interpretation was performed by [facility] - [facility], [address] [place] [phone] (CLIA#: [id number]). PATIENT NAME: KANG MORALES PATHOLOGY DATE OF : 39 REPORT #: [id number] PHYSICIAN: TATYANA PATHOLOGY PCP: SUGEY AGUIRRE MD REPORT IS CONFIDENTIAL AND NOT TO BE RELEASED WITHOUT AUTHORIZATION [facility] [address] [place] [id number] Signed Diagnostician: Katherine Scott MD Pathologist Electronically Signed 05/14/2025 Copies: ~ PATIENT NAME: KANG MORALES PATHOLOGY DATE OF : 39 REPORT #: [id number] PHYSICIAN: TATYANA NGUYỄN PCP: SUGEY AGUIRRE MD REPORT IS CONFIDENTIAL AND NOT TO BE RELEASED WITHOUT AUTHORIZATION
== END 2025-05-08 14:55 | disposition home or self-care (01) | DRG 395 ==
LOC: ED 14:25 → MS 19:03
PROVIDERS: Emergency Medicine; ADMIT Surgery; ATTEND Surgery
PROC: 0DB48ZX Excision of Esophagogastric Junction, Via Natural or Artificial Opening Endoscopic, Diagnostic (ICD-10-PCS; principal; 2025-05-08)
PROC: 0DB98ZX Excision of Duodenum, Via Natural or Artificial Opening Endoscopic, Diagnostic (ICD-10-PCS; 2025-05-08)
DX: T18.128A Food in esophagus causing other injury, initial encounter (principal); I10 Essential (primary) hypertension; E03.9 Hypothyroidism, unspecified; K22.0 Achalasia of cardia; Z90.710 Acquired absence of both cervix and uterus; Z95.0 Presence of cardiac pacemaker; Z98.890 Other specified postprocedural states; Z88.5 Allergy status to narcotic agent; Z88.8 Allergy status to other drugs, medicaments and biological substances; Z79.02 Long term (current) use of antithrombotics/antiplatelets; Z79.899 Other long term (current) drug therapy
CPT/HCPCS: 00813; 36415; 71045; 74177; 74230; 74246; 80053; 81003; 83690; 83735; 85025; 88305; 88313; 88342; 94762; 94799; 96361; 96374; 96375; 99285-25; J0330; J0360; J1100; J2003; J2405; J2704; J3010; J3490; J7030; J7121; Q9967